=== PATIENT | female | born 1950 | race Caucasian/White ===

== ENCOUNTER 2024-02-27 09:05 | Outpatient (AMB) | payer MEDICARE, SELFPAY ==
--- NOTE | 2024-02-27 09:18 | A.OFFVIS_ITS ---
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 The patient is a 73 year woman with the known history of allergies. Apparently for the last year she has been having a cough. The cough is moderate severity. With associated chest tightness and chest congestion. She has been evaluated by Allergy in addition to her primary care doctor. She has been on multiple courses of antibiotics without any significant improvement. As far as workup she has had sinus x-rays and I believe chest x-ray. No significant findings noted. The patient also had a CT scan of the chest on 02/11/2024 [facility]. I did personally review the images. She does have some evidence of ground-glass opacities primarily in the right base left base and also the right middle lobe area. Although she also has a component of tree-in-bud bronchiolitis involving the right middle lobe area. The patient also has other pulmonary nodules. Because of the findings and because of active she continues to have this persistent cough the patient is referred to Pulmonary. On further questioning she denies having any exposure to any fumes or toxins. She denies any mold exposures. She does have mucus congestion typically in the morning. Moderate severity. Denies any hemoptysis. We did provide her with a nebulized treatment with hypertonic saline albuterol in the office. Her wheezing rhonchi did improved dramatically. However, she was not able to bring up sputum culture. She will try to submit 1 once available. In addition to that will get blood work. She will need a nebulizer machine as she responded very well to the nebulized therapy. I do believe that she also needs chest PT. I will request an Acapella valve that she can start to maintain bronchopulmonary hygiene. The patient will return for 6 weeks. If she has not issues with medications or if he is not able to provide a sputum culture or specimen then would recommend bronchoscopy. [facility] Medical History (Updated 02/27/24 @ 23:01 by Vasile Gonzalez MD) Pulmonary nodule Bronchiolitis Asthma-COPD overlap syndrome Pneumonitis Social History (Updated 02/27/24 @ 09:29 by ALEXANDRU Galicia) Patient Tobacco Use Status: Never used Tobacco Review of Systems Const Denies fever(s) ENT Reports nasal obstruction Card Reports chest pain Resp Reports change in phlegm color, Reports chest congestion, Reports cough, Denies hemoptysis and Reports wheezing GI Reports no additional complaints Musc Reports no additional complaints Skin/Breast Denies rash Neuro Reports no additional complaints Endo Reports no additional complaints Isaias/Lymph Reports no additional complaints Aller/Immun Reports wheezing Physical Exam Vital Signs: Last Vital Signs Pulse 66 02/27/24 09:20 BP 128/70 02/27/24 09:20 Pulse Ox 98 02/27/24 09:20 Oxygen Delivery Method Room Air 02/27/24 09:20 BMI result Body Mass Index 38.3 Const General: comfortable HEENT Head: Yes normocephalic Neck Neck: Yes supple Chest Chest palpation & inspection: normal inspection of the chest Resp Effort & Inspection: normal respiratory effort Auscultation: rhonchi and wheezes Cardio Heart sounds: S1 normal heart sound present and S2 normal heart sound present GI Palpation (GI): Soft to palpation Skin General skin exam: no rashes or lesions noted Extrem General: Yes no clubbing, cyanosis or edema Office Procedures Nebulizer Treatment Nebulizer Treatment [id number] RX initial, or Nebulizer Subsequent Treatment Office Meds albuterol sulfate 2.5 mg/3 mL (0.083 %) solution for nebulization Performing Provider: Vasile Gonzalez MD Performing Location: [facility] [place] Pulmonology Services Administered by: Jacqueline Mendoza LPN on 02/27/24 10:02 2 Dose Route Admin Location Dispensed Lot Number Expiration Date ND Tissue Rewinder 2.5 mg inhalation 3 mL [id number] 08/24/24 9719-2101-63 MYLAN sodium chloride 3 % for nebulization Performing Provider: Vasile Gonzalez MD Performing Location: [facility] [place] Pulmonology Services Administered by: Jacqueline Mendoza LPN on 02/27/24 10:02 2 Dose Route Admin Location Dispensed Lot Number Expiration Date NDC Tissue Rewinder 3 mL inhalation 3 mL [id number] 02/23/25 [id number] [facility] Results Reviewed Results Reviewed: Assessment & Plan Assessment & Plan (1) Asthma-COPD overlap syndrome: Code(s): J44.89 - Other specified chronic obstructive pulmonary disease Category: Medical (2) Pneumonitis: Code(s): J98.4 - Other disorders of lung Category: Medical (3) Bronchiolitis: Code(s): J21.9 - Acute bronchiolitis, unspecified Category: Medical (4) Pulmonary nodule: Code(s): R91.1 - Solitary pulmonary nodule Category: Medical Plan start Nebulizer start Budesonide nebs start Albuterol nebs bloodwork sputum culture consider bronchoscopy if not clear F/U 4-6 weeks Orders: Orders 2 Angiotensin Converting Enzyme Today J98.4 - Other disorders of lung Complete Blood Count Auto Diff Today J98.4 - Other disorders of lung PRAKASH Reflex Titer and Pattern Today J98.4 - Other disorders of lung Sputum Cult + Gram stain Today J98.4 - Other disorders of lung AMB Nebulizer Treatment Today J98.4 - Other disorders of lung Cyclic Citrullinated Peptide Today J98.4 - Other disorders of lung Immunoglobulins,IgG IgA IgM Today J98.4 - Other disorders of lung Immunoglobulin E Today J98.4 - Other disorders of lung Immunoglobulin G Subclasses Today J98.4 - Other disorders of lung Hypersensitive Pneumonitis Prf Today J98.4 - Other disorders of lung, R91.8 - Other nonspecific abnormal finding of lung field ANCA Vasculitides Today J98.4 - Other disorders of lung Sjogren's Antibodies Today J98.4 - Other disorders of lung Medications: New 2 budesonide 0.5 mg (2 mL) inhalation BID 120 mL 11RF 30 days J44.9 - Chronic obstructive pulmonary disease, unspecified albuterol sulfate 2.5 mg (3 mL) inhalation BID 180 mL 11RF 30 days J44.89 - Other specified chronic obstructive pulmonary disease Coding Level of Care Code New Pt Level 5 (11312) Diagnoses Asthma-COPD overlap syndrome J44.89 Pneumonitis J98.4 Bronchiolitis J21.9 Pulmonary nodule R91.1 CPT Codes Nebulizer Treatment - Nebulizer Treatment, initial or subsequent: 90520- Nebulizer/MDI RX initial, or Nebulizer Subsequent Treatment ([id number]) Time Spent (min) 60
[2024-02-27 09:20] VITALS: BP 128/70; PULSE 66; O2SAT 98; BMI 38.3
== END 2024-02-27 13:17 | disposition home or self-care (01) ==
PROVIDERS: PCP Internal Medicine; Referring Provider Allergy & Immunology; Visit Provider Hospitalist
DX: J44.89 Other specified chronic obstructive pulmonary disease (principal); J98.4 Other disorders of lung; R91.1 Solitary pulmonary nodule
CPT/HCPCS: 99205

== ENCOUNTER 2024-02-27 09:05 | Outpatient (REF) | payer MEDICARE, SELFPAY ==
[2024-02-27 10:54] LABS: MANUAL DIFF FLAG NO
[2024-02-27 10:59] LABS: Basophils Percent Auto 0.5 % (0-2); Eosinophils Absolute Auto 0.1 X10*3/uL (0.0-0.4); Eosinophils Percent Auto 1.5 % (0-4); Hematocrit 40.3 % (37.0-47.0); Hemoglobin 13.1 g/dl (12.0-16.0); Imm Gran Abs Auto 0.04 X10*3/uL (0.00-0.03); Imm Gran Pct Auto 0.5 % (0.0-0.4); Lymphocytes Absolute Auto 1.7 X10*3/uL (1.2-4.9); Lymphocytes Percent Auto 21.1 % (20-40); Mean Corpuscular HGB Conc 32.5 g/dl (31.0-35.0); Mean Corpuscular Hemoglobin 29.4 pg (27.0-33.0); Mean Corpuscular Volume 90.4 fL (80.0-98.0); Mean Platelet Volume 10.7 fL (9.4-12.3); Monocytes Absolute Auto 0.6 X10*3/uL (0.1-1.2); Monocytes Percent Auto 7.7 % (2-11); Neutrophils Absolute Auto 5.4 x10*3/uL (2.0-8.3); Neutrophils Percent Auto 68.7 % (45-73); Platelet Count 232 X10*3/uL (160-400); Red Blood Count 4.46 X10*6/uL (4.20-5.50); White Blood Count 7.9 X10*3/uL (4.8-10.8)
[2024-02-29 04:34] LABS: IgA 236 mg/dL (70-320); IgG 1069 mg/dL (600-1540); IgM 72 mg/dL (50-300)
[2024-03-02 14:04] LABS: Anti Nuclear Antibody Screen NEGATIVE (NEGATIVE)
[2024-03-03 02:04] LABS: Angiotensin Converting Enzyme 37.2 U/L (9-67)
[2024-03-03 04:23] LABS: Immunoglobulin E 121 kU/L (<OR=114)
[2024-03-03 07:14] LABS: Antibody to SS-A Antigen <1.0 NEG AI (<1.0 NEG); Antibody to SS-B Antigen <1.0 NEG AI (<1.0 NEG); Myeloperoxidase Antibody <1.0 AI; Proteinase 3 PR3 Antibodies <1.0 AI
[2024-03-03 14:58] LABS: Cyclic Citrullinated Peptide <16 UNITS
[2024-03-03 15:39] LABS: Immunoglobulin G Subclass 1 464 mg/dL (382-929); Immunoglobulin G Subclass 2 397 mg/dL (241-700); Immunoglobulin G Subclass 3 64 mg/dL (22-178); Immunoglobulin G Subclass 4 14.1 mg/dL (4-86); Immunoglobulin G Total 953 mg/dL (600-1540)
[2024-03-08 16:23] LABS: Asperg fumigatus Precip Abs NEGATIVE (NEGATIVE); Micropoly faeni Abs NEGATIVE (NEGATIVE); Pigeon serum Abs NEGATIVE (NEGATIVE); Saccharo pora viridis Abs NEGATIVE (NEGATIVE); Thermo candidus Abs NEGATIVE (NEGATIVE); Thermoa vulgaris #1 NEGATIVE (NEGATIVE)
== END 2024-02-27 09:06 | disposition home or self-care (01) ==
LOC: HO.LAB 09:05
PROVIDERS: PCP Internal Medicine; Referring Provider Allergy & Immunology; Visit Provider Hospitalist
DX: J98.4 Other disorders of lung (principal); R91.8 Other nonspecific abnormal finding of lung field; J44.89 Other specified chronic obstructive pulmonary disease; J21.9 Acute bronchiolitis, unspecified; R91.1 Solitary pulmonary nodule
CPT/HCPCS: 36415; 82164; 82784; 82785; 85025; 86021; 86038; 86200; 86235; 86331; 86606; 86609; 94640; 99202

== ENCOUNTER 2024-04-09 10:34 | Outpatient (AMB) | payer MEDICARE, SELFPAY ==
--- NOTE | 2024-04-09 10:40 | A.OFFVIS_ITS ---
Vital Signs 04/09/24 10:41 Height 5 ft 7 in Weight 239 lb 3.225 oz BMI 37.5 BP 148/92 H Blood Pressure Location Lt brachial Position Sitting Pulse 71 Pulse Source Pulse Oximeter Pulse Oximetry (%) 99 Oxygen Delivery Method Room Air Intake Visit Reasons: Pneumonitis Allergies bacitracin Adverse Reaction (Severe, Verified 04/09/24 10:43) Rash HPI Comments Details: The patient is a 73 year woman with the known history of allergies. Apparently for the last year she has been having a cough. The cough is moderate severity. With associated chest tightness and chest congestion. She has been evaluated by Allergy in addition to her primary care doctor. She has been on multiple courses of antibiotics without any significant improvement. As far as workup she has had sinus x-rays and I believe chest x-ray. No significant findings noted. The patient also had a CT scan of the chest on 02/11/2024 [facility]. I did personally review the images. She does have some evidence of ground-glass opacities primarily in the right base left base and also the right middle lobe area. Although she also has a component of tree-in-bud bronchiolitis involving the right middle lobe area. The patient also has other pulmonary nodules. Because of the findings and because of active she continues to have this persistent cough the patient is referred to Pulmonary. On further questioning she denies having any exposure to any fumes or toxins. She denies any mold exposures. She does have mucus congestion typi nicholas in the morning. Moderate severity. Denies any hemoptysis. We did provide her with a nebulized treatment with hypertonic saline albuterol in the office. Her wheezing rhonchi did improved dramatically. However, she was not able to bring up sputum culture. She will try to submit 1 once available. In addition to that will get blood work. She will need a nebulizer machine as she responded very well to the nebulized therapy. I do believe that she also needs chest PT. I will request an Acapella valve that she can start to maintain bronchopulmonary hygiene. The patient will return for 6 weeks. If she has not issues with medications or if he is not able to provide a sputum culture or specimen then would recommend bronchoscopy. 04/09/2024 the patient is here for a pulmonary follow-up visit. Overall the patient has been feeling little better. Her cough is subsided some. Although she still has episodes of chest tightness and pressure sensation. She has been using her nebulizer. She has been using both medications. She has been complaining of some hoarseness. I did ask her to make sure she rinsing gargle with mouthwash or salt water. We did review all the blood work. Her IgE she is slightly elevated but the rest of the blood work was fairly negative for any connective tissue conditions or immunocompromised him conditions. She was not able to produce a sputum culture. On exam she still has some rhonchi and wheezing. Therefore we did talk about considering bronchoscopy to see if there is any smoldering infection. Specially since does not appear to be a sign ificant allergic component. We also again looked at the CT scan again. Personally reviewed the CT scan with her demonstrating some minimal areas of ground-glass opacities suggesting minimal areas of pneumonitis and primarily her issue is an airway issue with bronchospasms and bronchiolitis. We talked about bronchoscopy versus empiric medication. She opts into taking the empiric medications at this time. She did get the flutter valve so she is using CPT. Will go ahead and started on azithromycin 3 times a week. In the meantime hopefully she can provide a sputum culture as well. If the patient is no better with the medication she can always call and we can always arrange for bronchoscopy. Will follow-up in a couple months. She knows to get an EKG prior to that specially if she continues on the azithromycin. [facility] Medical History (Updated 02/27/24 @ 23:01 by Vasile Gonzalez MD) Pulmonary nodule Bronchiolitis Asthma-COPD overlap syndrome Pneumonitis Social History Patient Tobacco Use Status: Never used Tobacco Review of Systems Const Denies fever(s) ENT Reports nasal obstruction Card Denies chest pain Resp Denies change in phlegm color, Reports chest congestion, Reports cough, Denies hemoptysis and Reports wheezing GI Reports no additional complaints Musc Reports no additional complaints Skin/Breast Denies rash Neuro Reports no additional complaints Endo Reports no additional complaints Isaias/Lymph Reports no additional complaints Aller/Immun Reports wheezing Physical Exam Vital Signs: Last Vital Signs Pulse 71 04/09/24 10:41 BP 148/92 H 04/09/24 10:41 Pulse Ox 99 04/09/24 10:41 Oxygen Delivery Method Room Air 04/09/24 10:41 BMI result Body Mass Index 37.5 Const General: comfortable HEENT Head: Yes normocephalic Neck Neck: Yes supple Chest Chest palpation & inspection: normal inspection of the chest Resp Effort & Inspection: normal respiratory effort Auscultation: rhonchi Cardio Heart sounds: S1 normal heart sound present and S2 normal heart sound present GI Palpation (GI): Soft to palpation Skin General skin exam: no rashes or lesions noted Extrem General: Yes no clubbing, cyanosis or edema Assessment & Plan Assessment & Plan (1) Asthma-COPD overlap syndrome: Code(s): J44.89 - Other specified chronic obstructive pulmonary disease Category: Medical (2) Pneumonitis: Code(s): J98.4 - Other disorders of lung Category: Medical (3) Bronchiolitis: Code(s): J21.9 - Acute bronchiolitis, unspecified Category: Medical (4) Pulmonary nodule: Code(s): R91.1 - Solitary pulmonary nodule Category: Medical Plan start Budesonide nebs start Albuterol nebs CPT with acapella valve bloodwork ok sputum culture not able to provide start Azithromycin MWF EKG consider bronchoscopy if not better F/U 6-8 weeks Orders: Orders ECG 12 lead EKG Today J44.9 - Chronic obstructive pulmonary disease, unspecified Medications: New azithromycin Saturday, Saturday, Saturday 500 mg PO 3XW 12 tabs 2RF 30 days Coding Level of Care Code Est Pt Level 4 (72758) Diagnoses Asthma-COPD overlap syndrome J44.89 Pneumonitis J98.4 Bronchiolitis J21.9 Pulmonary nodule R91.1 Time Spent (min) 17
[2024-04-09 10:41] VITALS: BP 148/92; PULSE 71; O2SAT 99; BMI 37.5
== END 2024-04-09 11:11 | disposition home or self-care (01) ==
PROVIDERS: PCP Internal Medicine; Visit Provider Hospitalist
DX: J21.9 Acute bronchiolitis, unspecified (principal); J98.4 Other disorders of lung; R91.1 Solitary pulmonary nodule
CPT/HCPCS: 99214

== ENCOUNTER → 2024-04-09 10:34 | Outpatient (BNVA) | payer MEDICARE, SELFPAY | PROVIDERS: PCP Internal Medicine; Visit Provider Hospitalist | DX: J98.4 Other disorders of lung (principal); J21.9 Acute bronchiolitis, unspecified; R91.1 Solitary pulmonary nodule | CPT/HCPCS: 99212 ==

== ENCOUNTER 2024-06-04 10:49 | Outpatient (AMB) | payer MEDICARE, SELFPAY ==
[2024-06-04 10:57] VITALS: BP 138/86; PULSE 79; O2SAT 98; BMI 35.7
--- NOTE | 2024-06-04 10:57 | A.OFFVIS_ITS ---
Vital Signs 06/04/24 10:57 Height 5 ft 7 in Weight 228 lb 2.855 oz BMI 35.7 BP 138/86 Blood Pressure Location Lt brachial Position Sitting Pulse 79 Pulse Source Pulse Oximeter Pulse Oximetry (%) 98 Oxygen Delivery Method Room Air Intake Visit Reasons: Pneumonitis Allergies bacitracin Adverse Reaction (Severe, Verified 06/04/24 11:03) Rash HPI Comments Details: The patient is a 73 year woman with the known history of allergies. Apparently for the last year she has been having a cough. The cough is moderate severity. With associated chest tightness and chest congestion. She has been evaluated by Allergy in addition to her primary care doctor. She has been on multiple courses of antibiotics without any significant improvement. As far as workup she has had sinus x-rays and I believe chest x-ray. No significant findings noted. The patient also had a CT scan of the chest on 02/11/2024 [facility]. I did personally review the images. She does have some evidence of ground-glass opacities primarily in the right base left base and also the right middle lobe area. Although she also has a component of tree-in-bud bronchiolitis involving the right middle lobe area. The patient also has other pulmonary nodules. Because of the findings and because of active she continues to have this persistent cough the patient is referred to Pulmonary. On further questioning she denies having any exposure to any fumes or toxins. She denies any mold exposures. She does have mucus congestion typically in the morning. Moderate severity. Denies any hemoptysis. We did provide her with a nebulized treatment with hypertonic saline albuterol in the office. Her wheezing rhonchi did improved dramatically. However, she was not able to bring up sputum culture. She will try to submit 1 once available. In addition to that will get blood work. She will need a nebulizer machine as she responded very well to the nebulized therapy. I do believe that she also needs chest PT. I will request an Acapella valve that she can start to maintain bronchopulmonary hygiene. The patient will return for 6 weeks. If she has not issues with medications or if he is not able to provide a sputum culture or specimen then would recommend bronchoscopy. 04/09/2024 the patient is here for a pulmonary follow-up visit. Overall the patient has been feeling little better. Her cough is subsided some. Although she still has episodes of chest tightness and pressure sensation. She has been using her nebulizer. She has been using both medications. She has been complaining of some hoarseness. I did ask her to make sure she rinsing gargle with mouthwash or salt water. We did review all the blood work. Her IgE she is slightly elevated but the rest of the blood work was fairly negative for any connective tissue conditions or immunocompromised him conditions. She was not able to produce a sputum culture. On exam she still has some rhonchi and wheezing. Therefore we did talk about considering bronchoscopy to see if there is any smoldering infection. Specially since does not appear to be a signif icant allergic component. We also again looked at the CT scan again. Personally reviewed the CT scan with her demonstrating some minimal areas of ground-glass opacities suggesting minimal areas of pneumonitis and primarily her issue is an airway issue with bronchospasms and bronchiolitis. We talked about bronchoscopy versus empiric medication. She opts into taking the empiric medications at this time. She did get the flutter valve so she is using CPT. Will go ahead and started on azithromycin 3 times a week. In the meantime hopefully she can provide a sputum culture as well. If the patient is no better with the medication she can always call and we can always arrange for bronchoscopy. Will follow-up in a couple months. She knows to get an EKG prior to that specially if she continues on the azithromycin. 06/04/2024 the patient is here for a pulmonary follow-up visit. Overall the patient is feeling a lot better. Her cough is significantly improved and chest congestion as well. She continues her nebulizer twice a day. She also using the flutter valve. In addition to that she did on the azithromycin 3 times week. Her EKG was reassuring. At this point the patient is also sounding better. She does complaint of raspiness of her voice and losing her voice. Explained to her likely that is secondary to the medication. So therefore, will decrease her nebulizer to once a day to minimize irritation to the upper airway into the larynx. In addition to that she can go ahead and stop the azithromycin since she is doing well and she is not having any significant chest congestion. We again looked at her CT scan of the chest that demonstrated the areas of pneumonitis and tree-in-bud suggesting some component of bronchiolitis. And I am hopeful that now that she has been treated that and we can decrease her medicine without any rebound effect. If however she started developing worsening respiratory symptoms she is going to try to provide a sputum culture and sputum sample and if not we can always consider bronchoscopy. She can always consider going back on the antibiotics and little bit longer if she opts on not having any semi invasive procedures. We did review her blood work. Her connective tissue disease workup was negative in her hypersensitivity workup was also negative. My believe is likely a smoldering infection that was causing the symptoms and hopefully we be able to wean off the medications. [facility] Medical History (Updated 02/27/24 @ 23:01 by Vasile Gonzalez MD) Pulmonary nodule Bronchiolitis Asthma-COPD overlap syndrome Pneumonitis Social History Patient Tobacco Use Status: Never used Tobacco Review of Systems Const Denies fever(s) ENT Reports nasal obstruction Card Denies chest pain Resp Denies change in phlegm color, Reports chest congestion, Reports cough, Denies hemoptysis and Reports wheezing GI Reports no additional complaints Musc Reports no additional complaints Skin/Breast Denies rash Neuro Reports no additional complaints Endo Reports no additional complaints Isaias/Lymph Reports no additional complaints Aller/Immun Reports wheezing Physical Exam Vital Signs: Last Vital Signs Pulse 79 06/04/24 10:57 BP 138/86 06/04/24 10:57 Pulse Ox 98 06/04/24 10:57 Oxygen Delivery Method Room Air 06/04/24 10:57 BMI result Body Mass Index 35.7 Const General: comfortable HEENT Head: Yes normocephalic Neck Neck: Yes supple Chest Chest palpation & inspection: normal inspection of the chest Resp Effort & Inspection: normal respiratory effort Auscultation: clear to auscultation bilaterally, no rhonchi and no wheezes Cardio Heart sounds: S1 normal heart sound present and S2 normal heart sound present GI Palpation (GI): Soft to palpation Skin General skin exam: no rashes or lesions noted Extrem General: Yes no clubbing, cyanosis or edema Assessment & Plan Assessment & Plan (1) Asthma-COPD overlap syndrome: Code(s): J44.89 - Other specified chronic obstructive pulmonary disease Category: Medical (2) Pneumonitis: Code(s): J98.4 - Other disorders of lung Category: Medical (3) Bronchiolitis: Code(s): J21.9 - Acute bronchiolitis, unspecified Category: Medical (4) Pulmonary nodule: Code(s): R91.1 - Solitary pulmonary nodule Category: Medical Plan decrease Budesonide nebs daily decrease Albuterol nebs daily CPT with acapella valve bloodwork ok sputum culture not able to provide stop Azithromycin MWF normal EKG consider bronchoscopy if not better will plan to repeat CT chest in 1 yr from her last or sooner if she becomes symptomatic again F/U 3 months Coding Level of Care Code Est Pt Level 4 (68638) Diagnoses Asthma-COPD overlap syndrome J44.89 Pneumonitis J98.4 Bronchiolitis J21.9 Pulmonary nodule R91.1 Time Spent (min) 17
== END 2024-06-04 11:38 | disposition home or self-care (01) ==
PROVIDERS: PCP Internal Medicine; Visit Provider Hospitalist
DX: J21.9 Acute bronchiolitis, unspecified (principal); J98.4 Other disorders of lung; R91.1 Solitary pulmonary nodule
CPT/HCPCS: 99214

== ENCOUNTER → 2024-06-04 10:49 | Outpatient (BNVA) | payer MEDICARE, SELFPAY | PROVIDERS: PCP Internal Medicine; Visit Provider Hospitalist | DX: J44.89 Other specified chronic obstructive pulmonary disease (principal); J98.4 Other disorders of lung; J21.9 Acute bronchiolitis, unspecified; R91.1 Solitary pulmonary nodule | CPT/HCPCS: 99212 ==

== ENCOUNTER 2024-08-27 14:19 | Outpatient (AMB) | payer MEDICARE, SELFPAY ==
[2024-08-27 14:20] VITALS: BP 118/76; PULSE 62; O2SAT 96; BMI 35.0
--- NOTE | 2024-08-27 14:20 | A.OFFVIS_ITS ---
Vital Signs 08/27/24 14:20 Height 5 ft 7 in Weight 223 lb 12.307 oz BMI 35.0 BP 118/76 Blood Pressure Location Rt brachial Position Sitting Pulse 62 Pulse Source Pulse Oximeter Pulse Oximetry (%) 96 Oxygen Delivery Method Room Air Intake Visit Reasons: Pneumonitis Allergies bacitracin Adverse Reaction (Severe, Verified 08/27/24 14:25) Rash HPI Comments Details: The patient is a 73 year woman with the known history of allergies. Apparently for the last year she has been having a cough. The cough is moderate severity. With associated chest tightness and chest congestion. She has been evaluated by Allergy in addition to her primary care doctor. She has been on multiple courses of antibiotics without any significant improvement. As far as workup she has had sinus x-rays and I believe chest x-ray. No significant findings noted. The patient also had a CT scan of the chest on 02/11/2024 [facility]. I did personally review the images. She does have some evidence of ground-glass opacities primarily in the right base left base and also the right middle lobe area. Although she also has a component of tree-in-bud bronchiolitis involving the right middle lobe area. The patient also has other pulmonary nodules. Because of the findings and because of active she continues to have this persistent cough the patient is referred to Pulmonary. On further questioning she denies having any exposure to any fumes or toxins. She denies any mold exposures. She does have mucus congestion typic ally in the morning. Moderate severity. Denies any hemoptysis. We did provide her with a nebulized treatment with hypertonic saline albuterol in the office. Her wheezing rhonchi did improved dramatically. However, she was not able to bring up sputum culture. She will try to submit 1 once available. In addition to that will get blood work. She will need a nebulizer machine as she responded very well to the nebulized therapy. I do believe that she also needs chest PT. I will request an Acapella valve that she can start to maintain bronchopulmonary hygiene. The patient will return for 6 weeks. If she has not issues with medications or if he is not able to provide a sputum culture or specimen then would recommend bronchoscopy. 04/09/2024 the patient is here for a pulmonary follow-up visit. Overall the patient has been feeling little better. Her cough is subsided some. Although she still has episodes of chest tightness and pressure sensation. She has been using her nebulizer. She has been using both medications. She has been complaining of some hoarseness. I did ask her to make sure she rinsing gargle with mouthwash or salt water. We did review all the blood work. Her IgE she is slightly elevated but the rest of the blood work was fairly negative for any connective tissue conditions or immunocompromised him conditions. She was not able to produce a sputum culture. On exam she still has some rhonchi and wheezing. Therefore we did talk about considering bronchoscopy to see if there is any smoldering infection. Specially since does not appear to be a signi ficant allergic component. We also again looked at the CT scan again. Personally reviewed the CT scan with her demonstrating some minimal areas of ground-glass opacities suggesting minimal areas of pneumonitis and primarily her issue is an airway issue with bronchospasms and bronchiolitis. We talked about bronchoscopy versus empiric medication. She opts into taking the empiric medications at this time. She did get the flutter valve so she is using CPT. Will go ahead and started on azithromycin 3 times a week. In the meantime hopefully she can provide a sputum culture as well. If the patient is no better with the medication she can always call and we can always arrange for bronchoscopy. Will follow-up in a couple months. She knows to get an EKG prior to that specially if she continues on the azithromycin. 06/04/2024 the patient is here for a pulmonary follow-up visit. Overall the patient is feeling a lot better. Her cough is significantly improved and chest congestion as well. She continues her nebulizer twice a day. She also using the flutter valve. In addition to that she did on the azithromycin 3 times week. Her EKG was reassuring. At this point the patient is also sounding better. She does complaint of raspiness of her voice and losing her voice. Explained to her likely that is secondary to the medication. So therefore, will decrease her nebulizer to once a day to minimize irritation to the upper airway into the larynx. In addition to that she can go ahead and stop the azithromycin since she is doing well and she is not having any significant chest congestion. We again looked at her CT scan of the chest that demonstrated the areas of pneumonitis and tree-in-bud suggesting some component of bronchiolitis. And I am hopeful that now that she has been treated that and we can decrease her medicine without any rebound effect. If however she started developing worsening respiratory symptoms she is going to try to provide a sputum culture and sputum sample and if not we can always consider bronchoscopy. She can always consider going back on the antibiotics and little bit longer if she opts on not having any semi invasive procedures. We did review her blood work. Her connective tissue disease workup was negative in her hypersensitivity workup was also negative. My believe is likely a smoldering infection that was causing the symptoms and hopefully we be able to wean off the medications. 08/27/2024 the patient is here for a pulmonary follow-up visit. Overall she is feeling better. She denies any worsening respiratory symptoms. Denies any significant coughing. She is looking to go back to the gym. The patient has been using the nebulizer once a day. We did talk about stopping it altogether standing but she can use it as needed. We did also teach how to use the peak flow to measure her peak flow numbers and follow any worsening airway resistance. The patient did undergo the last CT scan was back in fall 2023 which she had evidence of pneumonitis and bronchiolitis in ground-glass pulmonary nodules. Will plan to repeat a CT scan of chest the fall of 2024. We did review all the blood work. The only significant finding is a slight elevation of the immature granulocytes and elevated IgE. Her hypersensitivity panels negative. Sputum was not able to be provided. Since the patient is feeling better will hold off on any further in semi-invasive or invasive diagnostic interventions. If her symptoms worsen we can always d discuss those options. [facility] Medical History (Updated 02/27/24 @ 23:01 by Vasile Gonzalez MD) Pulmonary nodule Bronchiolitis Asthma-COPD overlap syndrome Pneumonitis Social History Patient Tobacco Use Status: Never used Tobacco Review of Systems Const Denies fever(s) ENT Reports nasal obstruction Card Denies chest pain Resp Denies change in phlegm color, Denies chest congestion, Reports cough, Denies hemoptysis and Denies wheezing GI Reports no additional complaints Musc Reports no additional complaints Skin/Breast Denies rash Neuro Reports no additional complaints Endo Reports no additional complaints Isaias/Lymph Reports no additional complaints Aller/Immun Denies wheezing Physical Exam Vital Signs: Last Vital Signs Pulse 62 08/27/24 14:20 BP 118/76 08/27/24 14:20 Pulse Ox 96 08/27/24 14:20 Oxygen Delivery Method Room Air 08/27/24 14:20 BMI result Body Mass Index 35.0 Const General: comfortable HEENT Head: Yes normocephalic Neck Neck: Yes supple Chest Chest palpation & inspection: normal inspection of the chest Resp Effort & Inspection: normal respiratory effort Auscultation: clear to auscultation bilaterally, no rhonchi and no wheezes Cardio Heart sounds: S1 normal heart sound present and S2 normal heart sound present GI Palpation (GI): Soft to palpation Skin General skin exam: no rashes or lesions noted Extrem General: Yes no clubbing, cyanosis or edema Assessment & Plan Assessment & Plan (1) Asthma-COPD overlap syndrome: Code(s): J44.89 - Other specified chronic obstructive pulmonary disease Category: Medical (2) Pneumonitis: Code(s): J98.4 - Other disorders of lung Category: Medical (3) Bronchiolitis: Code(s): J21.9 - Acute bronchiolitis, unspecified Category: Medical (4) Pulmonary nodule: Code(s): R91.1 - Solitary pulmonary nodule Category: Medical Plan Budesonide nebs daily as needed Albuterol nebs daily as needed CPT with acapella valve peak flow provided will plan to repeat CT chest in 01/2025 PFTs F/U jan 2025 Orders: Orders CT chest wo IV con 12/28/24 J98.4 - Other disorders of lung, R91.1 - Solitary pulmonary nodule PFT pulmonary function test 12/28/24 J98.4 - Other disorders of lung, R91.1 - Solitary pulmonary nodule Coding Level of Care Code Est Pt Level 4 (84840) Complex EM visit Add On G2211 Diagnoses Asthma-COPD overlap syndrome J44.89 Pneumonitis J98.4 Bronchiolitis J21.9 Pulmonary nodule R91.1 Time Spent (min) 20
--- OUTSIDE RECORDS SUMMARY | 2024-08-27 15:49 | XMS_ITS | Clinical Summary ---
Author Organization [facility] Address [address] [place] [address] Care Team Providers Care Residential Mortgage Manager Name Role Phone Tai Vera MD Primary Care Provider [phone] Allergies Active Allergy Reactions Criticality Noted Date Comments Bacitracin Rash Low 03/16/2022 Medications Medication Sig Dispensed Refills Start Date End Date Status atorvastatin (LIPITOR) tablet 10 mg Take 1 tablet (10 mg total) by mouth daily. 0 Active triamterene-hydrochl orothiazide (DYAZIDE) 37.5-25 MG per capsule triamterene 37.5 mg-hydrochlorothiazi de 25 mg capsule 0 Active vitamin D3 (cholecalciferol) 10 MCG (400 UNIT) tablet Take 1 tablet (10 mcg total) by mouth daily. 0 Active Family History Medical History Relation Name Comments Heart disease Father Relation Name Status Comments Father Social History Tobacco Use Types Packs/Day Years Used Date Smoking Tobacco: Never Passive Smoke Exposure: Never Smokeless Tobacco: Never Tobacco Cessation:Counseling Given: Not Answered Alcohol Use Standard Drinks/Week Comments Yes 0 (1 standard drink = 0.6 oz pur e alcohol) occasional Sex and Gender Information Value Date Recorded Sex Assigned at Not on file Gender Identity Not on file Sexual Orientation Not on file Job Start Date Occupation Industry Not on file Not on file Not on file Last Filed Vital Signs Vital Sign Reading Time Taken Comments Blood Pressure 122/72 04/06/2022 10:15 AM EST Pulse 60 04/06/2022 10:20 AM EST Temperature 36.3 ??C (97.3 ??F) 04/06/2022 10:[address] Respiratory Rate 14 04/06/2022 10:20 AM EST Oxygen Saturation 96% 04/06/2022 10:20 AM EST Inhaled Oxygen Concentration - - Weight 106.6 kg (235 lb) 04/06/2022 8:42 AM EST Height 174 cm (5' 8.5 ) 04/06/2022 8:42 AM EST Body Mass Index 35.21 04/06/2022 8:42 AM EST Plan of Treatment Health Maintenance Due Date Last Done Comments Hepatitis C Screening 1950 COVID-19 Vaccine (#1) 05/16/1950 Depression Screening 1961 BMI Counseling 11/15/1967 Preventative Health Evaluation 11/15/1967 DTap / Tdap / Td (1 - Tdap) 1968 Colon Cancer Screening (Colonoscopy) 1994 Breast Cancer Screening (Mammogram) 11/15/1999 Shingrix-Zoster Vaccine (1 of 2) 11/15/1999 Fall Risk Assessment 2014 Osteoporosis Screening (DEXA Scan) 2014 Pneumococcal Vaccine (1 of 1 - PCV) 2014 Influenza Vaccine (#1) 2024 RSV Adult > 60+ Yrs or Pregn ant (1 - 1-dose 75+ series) 2024 Hepatitis B Vaccines Aged Out No long er eligible based on patient's age to complete this topic RSV Ped < 20 months Aged Out No longe r eligible based on patient's age to complete this topic Care Teams Residential Mortgage Manager Relationship Specialty Start Date End Date Tai Vera MD [address] [place] [address], [place] [address] PCP - General Internal Medicine 04/04/22
--- OUTSIDE RECORDS SUMMARY | 2024-08-27 15:50 | XMS_ITS | Clinical Summary ---
Author Organization [facility] Address [address] [place] [id number] Care Team Providers Care Franchise Development Manager Name Role Phone Tai Vera DO Primary Care Provider [phone] Medications omeprazole OTC (PriLOSEC OTC) 20 mg EC tablet Take 1 tablet (20 mg total) by mouth 1 (one) time each day. Do not crush, chew, or split. 30 tablet 3 08/03/2024 Active Encounters Date Type Department Care Team Description 08/03/2024 Telephone Gastroenterology - 299 [facility] 299 [facility] [address] [place] [phone] Jazmin Rocha NP from Last 3 Months Surgical History Surgery Date Site/Laterality Comments TOTAL KNEE ARTHROPLASTY Right PROCEDURE:REPLACEMENT TOTAL KNEE BREAST BIOPSY Right PROCEDURE:BREAST BIOPSY OTHER SURGICAL HISTORY PROCEDURE:TONSILLECTOMY AND ADENOIDECTOMY COLONOSCOPY PROCEDURE:COLONOSCOPY GANGLION CYST EXCISION 04/06/2022 Right PROCEDURE:GANGLION CYST EXCISION;COMMENT:Procedure: RIGHT 2ND TOE EXCISION GANGLION LOWER EXTREMITY; Surgeon: Tin Quiroz DPM; [place] [facility]; Service: Podiatry; Laterality: Right; Medical History Medical History Date Comments Hypertension DX:Hypertension Hyperlipidemia DX:Hyperlipidemi a Osteoarthritis DX:Osteoarthriti s Concussion DX:Concussion Seasonal allergies DX:Seasonal a llergies Melanoma in situ of lower extremity, left DX:Melanoma in situ of lower extremity, left (HCC) Family History Medical History Relation Name Comments Heart disease Father Relation Name Status Comments Father Social History Tobacco Use Types Packs/Day Years Used Date Smoking Tobacco: Never Smokeless Tobacco: Never Alcohol Use Standard Drinks/Week Comments Yes 0 (1 standard drink = 0.6 oz pur e alcohol) Comments Unknown Sex and Gender Information Value Date Recorded Sex Assigned at Not on file Legal Sex Female 5:20 AM EST Gender Identity Not on file Sexual Orientation Not on file Obstetrics History Plan of Treatment Health Maintenance Due Date Last Done Comments Breast Cancer Screening 1949 COVID-19 Vaccine (#1) 1954 DTaP,Tdap,and Td Vaccines (1 - Tdap) 1968 Pneumococcal Vaccine: 50+ Ye ars (1 of 1 - PCV) 11/15/1999 Zoster Vaccines (1 of 2) 11/15/1999 Colorectal Cancer Screening: Colonoscopy 04/29/2022 Depression Screening 04/29/2022 Falls Risk Assessment 04/29/2022 Hepatitis C Screening 04/29/2022 Osteoporosis Screening (Bone Density Screening) 04/29/2022 Social Influencers of Health Screening 04/29/2022 Influenza Vaccine (#1) 2024 RSV Immunization Adult Patie nts (1 - 1-dose 75+ series) 2024 HIB Vaccines Aged Out No longer eligi ble based on patient's age to complete this topic HPV Vaccines Aged Out No longer eligi ble based on patient's age to complete this topic Hepatitis A Vaccines Aged Out No long er eligible based on patient's age to complete this topic Hepatitis B Vaccines Aged Out No long er eligible based on patient's age to complete this topic IPV Vaccines Aged Out No longer eligi ble based on patient's age to complete this topic MMR Vaccines Aged Out No longer eligi ble based on patient's age to complete this topic Meningococcal ACWY Vaccine Aged Out N o longer eligible based on patient's age to complete this topic Meningococcal B Vacine Aged Out No lo nger eligible based on patient's age to complete this topic RSV Immunization Patients Un misti 20 months Aged Out No longer eligible b ased on patient's age to complete this topic Varicella Vaccines Aged Out No longer eligible based on patient's age to complete this topic Care Teams Franchise Development Manager Relationship Specialty Start Date End Date Tai Vera DO [address] [place] [address] [id number] [facility] - General 04/04/22
== END 2024-08-27 15:07 | disposition home or self-care (01) ==
LOC: HO.HPS 14:20
PROVIDERS: PCP Internal Medicine; Visit Provider Hospitalist
DX: J21.9 Acute bronchiolitis, unspecified (principal); J98.4 Other disorders of lung; R91.1 Solitary pulmonary nodule
CPT/HCPCS: 99214; G2211

== ENCOUNTER → 2024-08-27 14:19 | Outpatient (BNVA) | payer MEDICARE, SELFPAY | PROVIDERS: PCP Internal Medicine; Visit Provider Hospitalist | DX: J21.9 Acute bronchiolitis, unspecified (principal); J98.4 Other disorders of lung; R91.1 Solitary pulmonary nodule | CPT/HCPCS: 99212 ==

== ENCOUNTER 2025-01-22 13:16 | Outpatient (REF) | payer MEDICARE, SELFPAY ==
--- NOTE | ~2025-01-22 | CT_ITS ---
EXAMINATION: CT CHEST WITHOUT IV CONTRAST INDICATION: R91.1 - Solitary pulmonary nodule COMPARISON: There are no prior studies available for comparison. TECHNIQUE: Helical CT scan of the chest was performed without intravenous contrast. Coronal and sagittal reformatted images were generated and reviewed. This CT exam was performed with one or more of the following dose reduction techniques: automated exposure control, adjustment of the mA and/or kV according to patient size, use of iterative reconstruction technique. DLP: 183 mGy-cm CHEST: THYROID: The thyroid is unremarkable. LUNGS: There are scattered 1-2 mm nodules in the right upper lobe (series 5, image 65 and 77) in the right lower lobe (series 5, images 78, 89 and 98), in the left upper lobe (series 5, images 64 and 73), and in the left lower lobe (series 5, images 101, 106, and 119). MEDIASTINUM: There is no mediastinal lymphadenopathy. YANETH: Evaluation of the hilar regions is limited by lack of intravenous contrast material. CARDIOVASCULATURE: The heart is normal in size. There is no pericardial effusion. The thoracic aorta is normal in caliber. DEGREE OF CORONARY CALCIFICATION: none PLEURA: There is no pleural effusion. No pneumothorax. MAIN AIRWAYS: The mainstem bronchi and proximal branches are patent. AXILLA: There is no axillary lymphadenopathy. BONES AND SOFT TISSUES: There is degenerative disc disease of the spine. UPPER ABDOMEN: The visualized portions of the liver, spleen, and adrenals have an unremarkable unenhanced appearance. CT/CT chest wo IV con IMPRESSION: Scattered 1-2 mm bilateral pulmonary nodules as described above. Please see Fleischner Society guidelines below. Fleischner Criteria for pulmonary nodule follow-up SOLID NODULES: Low risk patient: <6mm: no follow-up 6-8mm: 6 month follow-up CT >8mm: PET/Biopsy/ 3 month follow-up CT High risk patient: <6mm: 12 month follow-up CT 6-8mm: 6 month follow-up CT >8mm: PET/Biopsy/ 3 month follow-up CT SUB-SOLID/GROUNDGLASS NODULES: All patients: > or = 6mm: 6 month follow-up CT *Please note that in patients in the following categories, the Fleischner criteria do not apply: Immunocompromised, lung cancer screening population, age below 35, and patients with known malignancy Electronically signed by: Matthew Farrell MD 01/22/2025 01:57 PM EDT
--- OUTSIDE RECORDS SUMMARY | 2025-01-22 13:34 | XMS_ITS | Clinical Summary ---
Author Organization [facility] Address [address] [place] [address] Care Team Providers Care Negative Cleaner Name Role Phone Tai Vera MD Primary Care Provider [phone] Allergies Active Allergy Reactions Criticality Noted Date [...] 60 04/06/2022 10:20 AM EST Temperature 36.3 C (97.3 F) 04/06/2022 10:15 AM EST Respiratory Rate 14 04/06/2022 10:20 AM EST [...] Tdap) 1968 Colon Cancer Screening (Colonoscopy) 1994 Shingrix-Zoster Vaccine (1 of 2) 11/15/1999 Fall Risk Assessment 2014 Osteoporosis Screening (DEXA Scan) 2014 Pneumococcal Vaccine (1 of 1 - PCV) 2014 RSV Adult > 60+ Yrs or Pregn ant (1 - 1-dose 75+ series) 2024 Influenza Vaccine (#1) 2025 Hepatitis B Vaccines Aged Out No long er eligible based on patient's age to complete this topic RSV Ped < 20 months Aged Out No longe r eligible based on patient's age to complete this topic Care Teams Negative Cleaner Relationship Specialty Start Date End Date Tai Vera MD [address] [facility] [place] [place] [address] PCP - General Internal Medicine 04/04/22
--- OUTSIDE RECORDS SUMMARY | 2025-01-22 13:34 | XMS_ITS | Clinical Summary ---
Author Organization [facility] Address [address] [place] [id number] Care Team Providers Care Wig Sales Consultant Name Role Phone Tai Vera DO Primary Care Provider [phone] Medications omeprazole OTC (PriLOSEC OTC) 20 mg EC tablet Take 1 tablet (20 mg total) by mouth 1 (one) time each day. Do not crush, chew, or split. 30 tablet 3 08/03/2024 Active omeprazole (PRILOSEC) 20 mg tablet,delayed release (DR/EC)Indicatio ns:Gastroesophag eal reflux disease without esophagitis TAKE 1 TABLET BY MOUTH EVERY DAY -DO NOT CRUSH, CHEW, OR SPLIT 30 tablet 1 11/30/2024 Active Encounters Date Type Department Care Team Description 11/30/2024 Telephone Gastroenterology - [address] [place] [phone] Jazmin Rocha NP from Last 3 Months Surgical History Surgery Date Site/Laterality Comments TOTAL KNEE ARTHROPLASTY Right PROCEDURE:REPLACEMENT TOTAL KNEE BREAST BIOPSY Right PROCEDURE:BREAST BIOPSY OTHER SURGICAL HISTORY PROCEDURE:TONSILLECTOMY AND ADENOIDECTOMY COLONOSCOPY PROCEDURE:COLONOSCOPY GANGLION CYST EXCISION 04/06/2022 Right PROCEDURE:GANGLION CYST EXCISION;COMMENT:Procedure: RIGHT 2ND TOE EXCISION GANGLION LOWER EXTREMITY; Surgeon: Tin Quiroz DPM; Location: [facility]; Service: Podiatry; Laterality: Right; Medical History Medical History Date Comments Hypertension DX:Hypertension Hyperlipidemia DX:Hyperlipidemi a Osteoarthritis DX:Osteoarthriti s Concussion DX:Concussion Seasonal allergies DX:Seasonal a llergies Melanoma in situ of lower ex tremity, left (CMS/HCC V24, CMS/HCC V28) DX:Melanoma in situ of lowe r extremity, left (HCC) Family History Medical History [...] Health Maintenance Due Date Last Done Comments COVID-19 Vaccine (#1) 1954 DTaP,Tdap,and Td Vaccines (1 - Tdap) 1968 Zoster Vaccines (1 of 2) 1968 Pneumococcal Vaccine: 50+ Ye ars (1 of 1 - PCV) 11/15/1999 Colorectal Cancer Screening: Colonoscopy 04/29/2022 Falls Risk Assessment 04/29/2022 Hepatitis C Screening 04/29/2022 Osteoporosis Screening (Bone Density Screening) 04/29/2022 Social Influencers of Health Screening 04/29/2022 Depression Screening 05/27/2024 RSV Immunization Adult Patie nts (1 - 1-dose 75+ series) 2024 Influenza Vaccine (#1) 2025 HIB Vaccines Aged Out No longer eligi [...] age to complete this topic Meningococcal B Vaccine Aged Out No l onger eligible based on patient's age to complete this topic RSV Immunization Patients Un misti 20 months Aged Out No longer eligible b ased on patient's age to complete this topic Varicella Vaccines Aged Out No longer eligible based on patient's age to complete this topic Care Teams Wig Sales Consultant Relationship Specialty Start Date End Date Tai Vera DO [address] [place] [id number] PCP - General 04/04/22
== END 2025-01-22 13:17 | disposition home or self-care (01) ==
LOC: HO.CT 13:16
PROVIDERS: PCP Internal Medicine; Visit Provider Hospitalist
DX: R91.1 Solitary pulmonary nodule (principal); J98.4 Other disorders of lung
CPT/HCPCS: 71250

== ENCOUNTER → 2025-01-22 13:18 | Outpatient (BNV) | payer MEDICARE, SELFPAY | PROVIDERS: PCP Internal Medicine; Visit Provider Radiology Diagnostic Radiology | DX: R91.8 Other nonspecific abnormal finding of lung field (principal) | CPT/HCPCS: 71250 ==

== ENCOUNTER 2025-01-28 14:20 | Outpatient (REF) | payer MEDICARE, SELFPAY ==
--- NOTE | 2025-01-28 15:05 | PFT_ITS ---
Flows: FEV1: 94 % of predicted at 2.14 L FVC: 91 % of predicted at 2.70 L FEV1/FVC: 79 % Bronchodilator response: Absent Volumes: Total lung capacity: 83 % of predicted at 4.53 L Residual volume: 80 % of predicted at 1.84 L Slow vital capacity: 88 % of predicted at 2.70 L Expiratory reserve volume: 54 % of predicted at 0.41 L Diffusion capacity: Mildly decreased, corrects to normal after adjustment for alveolar ventilation. Impression: No obstructive or restrictive ventilatory defects. No bronchodilator response. Decreased expiratory reserve volume suggests extrathoracic restriction likely secondary to abdominal obesity. Decreased diffusion capacity suggests emphysema. MTDD
[2025-01-28 15:37] VITALS: PULSE 66; O2SAT 98
--- OUTSIDE RECORDS SUMMARY | 2025-01-28 15:41 | XMS_ITS | Clinical Summary ---
Author Organization [facility] Address [address] [place] [address] Care Team Providers Care Care Attendant Name Role Phone Tai Vera MD Primary Care Provider [phone] Allergies Active Allergy Reactions Criticality Noted Date [...] age to complete this topic Care Teams Care Attendant Relationship Specialty Start Date End Date Tai Vera MD [address] [facility] [place] [address] PCP - General Internal Medicine 04/04/22
--- OUTSIDE RECORDS SUMMARY | 2025-01-28 15:41 | XMS_ITS | Clinical Summary ---
Author Organization [facility] Address [id number] [place] [id number] Care Team Providers Care Nut Sorter Operator Name Role Phone Tai Vera DO Primary Care Provider [phone] Medications omeprazole OTC (PriLOSEC OTC) 20 mg [...] Team Description 11/30/2024 Telephone Gastroenterology - [address] [place] [id number] Jazmin Rocha NP from Last 3 Months Surgical History Surgery Date Site/Laterality Comments TOTAL KNEE ARTHROPLASTY Right PROCEDURE:REPLACEMENT TOTAL KNEE BREAST BIOPSY Right PROCEDURE:BREAST BIOPSY OTHER SURGICAL HISTORY PROCEDURE:TONSILLECTOMY AND ADENOIDECTOMY COLONOSCOPY PROCEDURE:COLONOSCOPY GANGLION CYST EXCISION 04/06/2022 Right PROCEDURE:GANGLION CYST EXCISION;COMMENT:Procedure: RIGHT 2ND TOE EXCISION GANGLION LOWER EXTREMITY; Surgeon: Tin Quiroz DPM; Location: [facility]; Service: Podiatry; Laterality: Right; Medical History [...] age to complete this topic Care Teams Nut Sorter Operator Relationship Specialty Start Date End Date Tai Vera DO [address] [place] [id number] PCP - General 04/04/22
== END 2025-01-28 14:21 | disposition home or self-care (01) ==
LOC: HO.RESP 14:20
PROVIDERS: PCP Internal Medicine; Visit Provider Hospitalist
DX: J98.4 Other disorders of lung (principal); R91.1 Solitary pulmonary nodule
CPT/HCPCS: 94010; 94640; 94727; 94729

== ENCOUNTER → 2025-01-28 15:05 | Outpatient (BNV) | payer MEDICARE, SELFPAY | PROVIDERS: PCP Internal Medicine; Visit Provider Internal Medicine Pulmonary Disease | DX: R91.1 Solitary pulmonary nodule (principal) | CPT/HCPCS: 94060; 94727; 94729 ==

== ENCOUNTER 2025-02-17 10:54 | Outpatient (AMB) | payer MEDICARE, SELFPAY ==
[2025-02-17 11:01] VITALS: BP 140/76; PULSE 65; O2SAT 97; BMI 35.0
--- NOTE | 2025-02-17 11:01 | MHC.OFFVIS ---
Vital Signs 02/17/25 11:01 Height 5 ft 7 in Weight 223 lb 12.307 oz BMI 35.0 BP 140/76 H Blood Pressure Location Lt brachial Position Sitting Pulse 65 Pulse Source Pulse Oximeter Pulse Oximetry (%) 97 Oxygen Delivery Method Room Air Intake Visit Reasons: Pneumonitis Accompanied by: Self / Same As Patient Allergies bacitracin Adverse Reaction (Severe, Verified 02/17/25 11:04) Rash HPI Comments Details: The patient is a 74 year woman with the known history of allergies. Apparently for the last year she has been having a cough. The cough is moderate severity. With associated chest tightness and chest congestion. She has been evaluated by Allergy in addition to her primary care doctor. She has been on multiple courses of antibiotics without any significant improvement. As far as workup she has had sinus x-rays and I believe chest x-ray. No significant findings noted. The patient also had a CT scan of the chest on 02/11/2024 [facility]. I did personally review the images. She does have some evidence of ground-glass opacities primarily in the right base left base and also the right middle lobe area. Although she also has a component of tree-in-bud bronchiolitis involving the right middle lobe area. The patient also has other pulmonary nodules. Because of the findings and because of active she continues to have this persistent cough the patient is referred to Pulmonary. On further questioning she denies having any exposure to any fumes or toxins. She denies any mold exposures. She does have mucus congestion typically in the morning. Moderate severity. Denies any hemoptysis. We did provide her with a nebulized treatment with hypertonic saline albuterol in the office. Her wheezing rhonchi did improved dramatically. However, she was not able to bring up sputum culture. She will try to submit 1 once available. In addition to that will get blood work. She will need a nebulizer machine as she responded very well to the nebulized therapy. I do believe that she also needs chest PT. I will request an Acapella valve that she can start to maintain bronchopulmonary hygiene. The patient will return for 6 weeks. If she has not issues with medications or if he is not able to provide a sputum culture or specimen then would recommend bronchoscopy. 04/09/2024 the patient is here for a pulmonary follow-up visit. Overall the patient has been feeling little better. Her cough is subsided some. Although she still has episodes of chest tightness and pressure sensation. She has been using her nebulizer. She has been using both medications. She has been complaining of some hoarseness. I did ask her to make sure she rinsing gargle with mouthwash or salt water. We did review all the blood work. Her IgE she is slightly elevated but the rest of the blood work was fairly negative for any connective tissue conditions or immunocompromised him conditions. She was not able to produce a sputum culture. On exam she still has some rhonchi and wheezing. Therefore we did talk about considering bronchoscopy to see if there is any smoldering infection. Specially since does not appear to be a significant allergic component. We also again looked at the CT scan again. Personally reviewed the CT scan with her demonstrating some minimal areas of ground-glass opacities suggesting minimal areas of pneumonitis and primarily her issue is an airway issue with bronchospasms and bronchiolitis. We talked about bronchoscopy versus empiric medication. She opts into taking the empiric medications at this time. She did get the flutter valve so she is using CPT. Will go ahead and started on azithromycin 3 times a week. In the meantime hopefully she can provide a sputum culture as well. If the patient is no better with the medication she can always call and we can always arrange for bronchoscopy. Will follow-up in a couple months. She knows to get an EKG prior to that specially if she continues on the azithromycin. 06/04/2024 the patient is here for a pulmonary follow-up visit. Overall the patient is feeling a lot better. Her cough is significantly improved and chest congestion as well. She continues her nebulizer twice a day. She also using the flutter valve. In addition to that she did on the azithromycin 3 times week. Her EKG was reassuring. At this point the patient is also sounding better. She does complaint of raspiness of her voice and losing her voice. Explained to her likely that is secondary to the medication. So therefore, will decrease her nebulizer to once a day to minimize irritation to the upper airway into the larynx. In addition to that she can go ahead and stop the azithromycin since she is doing well and she is not having any significant chest congestion. We again looked at her CT scan of the chest that demonstrated the areas of pneumonitis and tree-in-bud suggesting some component of bronchiolitis. And I am hopeful that now that she has been treated that and we can decrease her medicine without any rebound effect. If however she started developing worsening respiratory symptoms she is going to try to provide a sputum culture and sputum sample and if not we can always consider bronchoscopy. She can always consider going back on the antibiotics and little bit longer if she opts on not having any semi invasive procedures. We did review her blood work. Her connective tissue disease workup was negative in her hypersensitivity workup was also negative. My believe is likely a smoldering infection that was causing the symptoms and hopefully we be able to wean off the medications. 08/27/2024 the patient is here for a pulmonary follow-up visit. Overall she is feeling better. She denies any worsening respiratory symptoms. Denies any significant coughing. She is looking to go back to the gym. The patient has been using the nebulizer once a day. We did talk about stopping it altogether standing but she can use it as needed. We did also teach how to use the peak flow to measure her peak flow numbers and follow any worsening airway resistance. The patient did undergo the last CT scan was back in fall 2023 which she had evidence of pneumonitis and bronchiolitis in ground-glass pulmonary nodules. Will plan to repeat a CT scan of chest the fall of 2024. We did review all the blood work. The only significant finding is a slight elevation of the immature granulocytes and elevated IgE. Her hypersensitivity panels negative. Sputum was not able to be provided. Since the patient is feeling better will hold off on any further in semi-invasive or invasive diagnostic interventions. If her symptoms worsen we can always d discuss those options. 02/17/2025 The patient is here for s pulmonary follow up visit. Overall better. PFTs demonstrated improved Spirometry and lung volumes. HAs a mild diffusion impairment. Spoke about increasing exercise regimen. Her CT chest also personally reviewed by me with interval improvement if GGOs. Still some minimal scarring. [facility] Medical History (Updated 02/17/25 @ 22:31 by Vasile Gonzalez MD) Asthma Pulmonary nodule Bronchiolitis Asthma-COPD overlap syndrome Pneumonitis Social History Patient Tobacco Use Status: Never used Tobacco Review of Systems Const Denies fever(s) ENT Reports nasal congestion Card Denies chest pain Resp Denies change in phlegm color, Denies chest congestion, Reports cough, Denies hemoptysis and Denies wheezing GI Reports no additional complaints Musc Reports no additional complaints Skin/Breast Denies rash Neuro Reports no additional complaints Endo Reports no additional complaints Isaias/Lymph Reports no additional complaints Aller/Immun Denies wheezing Physical Exam Vital Signs: Last Vital Signs Pulse 65 02/17/25 11:01 BP 140/76 H 02/17/25 11:01 Pulse Ox 97 02/17/25 11:01 Oxygen Delivery Method Room Air 02/17/25 11:01 BMI result Body Mass Index 35.0 Const General: comfortable HEENT Head: Yes normocephalic Neck Neck: Yes supple Chest Chest palpation & inspection: normal inspection of the chest Resp Effort & Inspection: normal respiratory effort Auscultation: clear to auscultation bilaterally, no rhonchi and no wheezes Cardio Heart sounds: S1 normal heart sound present and S2 normal heart sound present GI Palpation (GI): Soft to palpation Skin General skin exam: no rashes or lesions noted Extrem General: Yes no clubbing, cyanosis or edema Assessment & Plan Assessment & Plan (1) Pneumonitis: Code(s): J98.4 - Other disorders of lung Category: Medical (2) Bronchiolitis: Code(s): J21.9 - Acute bronchiolitis, unspecified Category: Medical (3) Pulmonary nodule: Code(s): R91.1 - Solitary pulmonary nodule Category: Medical (4) Asthma: Code(s): J45.909 - Unspecified asthma, uncomplicated Category: Medical Qualifiers: Asthma severity: mild Asthma persistence: intermittent Asthma complication type: uncomplicated Qualified Code(s): J45.20 - Mild intermittent asthma, uncomplicated Plan Albuterol nebs daily as needed CPT with acapella valve peak flow provided F/U 1 yr or as needed Coding Level of Care Code Est Pt Level 4 (08340) Diagnoses Pneumonitis J98.4 Bronchiolitis J21.9 Pulmonary nodule R91.1 Mild intermittent asthma without complication J45.20 Asthma severity: mild Asthma persistence: intermittent Asthma complication type: uncomplicated Time Spent (min) 17
--- OUTSIDE RECORDS SUMMARY | 2025-02-17 14:01 | XMS_ITS | Clinical Summary ---
Author Organization [facility] Address [address] [place] [address] Care Team Providers Care Fabrication Mig Welder Name Role Phone Tai Vera MD Primary Care Provider [phone] Allergies Active Allergy Reactions Criticality Noted Date [...] age to complete this topic Care Teams Fabrication Mig Welder Relationship Specialty Start Date End Date Tai Vera MD [address] [facility] [place] [address] PCP - General Internal Medicine 04/04/22
--- OUTSIDE RECORDS SUMMARY | 2025-02-17 14:01 | XMS_ITS | Clinical Summary ---
Author Organization [facility] Address [address] [place] [id number] Care Team Providers Care Floor Waxer Name Role Phone Tai Vera DO Primary Care Provider [phone] Medications omeprazole OTC (PriLOSEC OTC) 20 mg [...] Team Description 11/30/2024 Telephone Gastroenterology - [address] [place] [phone] Jazmin Rocha NP from Last 3 Months Surgical History Surgery Date Site/Laterality Comments TOTAL KNEE ARTHROPLASTY Right PROCEDURE:REPLACEMENT TOTAL KNEE BREAST BIOPSY Right PROCEDURE:BREAST BIOPSY OTHER SURGICAL HISTORY PROCEDURE:TONSILLECTOMY AND ADENOIDECTOMY COLONOSCOPY PROCEDURE:COLONOSCOPY GANGLION CYST EXCISION 04/06/2022 Right PROCEDURE:GANGLION CYST EXCISION;COMMENT:Procedure: RIGHT 2ND TOE EXCISION GANGLION LOWER EXTREMITY; Surgeon: Tin Quiroz DPM; Location: [facility]; Service: Podiatry; Laterality: Right; Medical History [...] age to complete this topic Care Teams Floor Waxer Relationship Specialty Start Date End Date Tai Vera DO [address] [place] [id number] PCP - General 04/04/22
== END 2025-02-17 11:37 | disposition home or self-care (01) ==
LOC: HO.HPS 10:55
PROVIDERS: PCP Internal Medicine; Visit Provider Hospitalist
DX: J98.4 Other disorders of lung (principal); J21.9 Acute bronchiolitis, unspecified; R91.1 Solitary pulmonary nodule; J45.20 Mild intermittent asthma, uncomplicated
CPT/HCPCS: 99214

== ENCOUNTER → 2025-02-17 10:54 | Outpatient (BNVA) | payer MEDICARE, SELFPAY | PROVIDERS: PCP Internal Medicine; Visit Provider Hospitalist | DX: J98.4 Other disorders of lung (principal); J21.9 Acute bronchiolitis, unspecified; R91.1 Solitary pulmonary nodule; J45.20 Mild intermittent asthma, uncomplicated | CPT/HCPCS: 99212 ==